=== PATIENT | female | born 1985 | race Caucasian/White ===

== ENCOUNTER → 2019-01-13 | Emergency (ER) | payer MEDICAID ==
[2019-01-13] MEDS: METHYLPREDNISOLONE 125 MG INJ IM (21:50)
[2019-01-13] MEDS: DIPHENHYDRAMINE 50 MG CAP PO (21:50)
== END | disposition home or self-care (01) ==
LOC: FTE 19:10
DX: L50.0 Allergic urticaria (principal)
CPT/HCPCS: 96372; 99284-25